=== PATIENT | female | born 1965 | race Caucasian/White ===

== ENCOUNTER → 2017-09-17 15:46 | Outpatient (CLI) | payer BC, SELFPAY ==
--- NOTE | 2017-09-17 15:52 | CT_ITS ---
STUDY: CT CHEST WITHOUT CONTRAST REASON FOR EXAM: Female, 51 years old. Lung nodule. RADIATION DOSAGE (If Supplied By Facility): CTDIvol = ( 15.02 ) mGy, DLP = ( 566.86 ) mGycm TECHNIQUE: Transaxial imaging was performed without the administration of intravenous contrast material. Individualized dose optimization techniques were used for this CT. COMPARISON: CT of the abdomen and pelvis dated November 12, 2015 FINDINGS: Within the left lower lobe there is a stable 4.7 mm pulmonary nodule. There is no demonstrated pleural abnormality. Normal heart and pericardium. There is a moderate size hiatal hernia present. Normal hilar regions. Normal unenhanced pulmonary arteries. Normal aorta arch and descending thoracic aorta. There are multi-level degenerative changes of the thoracic spine. There is no demonstrated abnormality of the visualized upper abdomen. CT/Chest without Contrast IMPRESSION: Stable 4.7 mm left lower lobe pulmonary nodule since October 2015 suggesting a benign process. Hiatal hernia. Electronically Signed: Trisha Echavarria MD at 23:36 EDT Tel , Service support ,
== END ==
PROVIDERS: Family Provider Family Medicine; PCP Family Medicine; Visit Provider Internal Medicine Critical Care Medicine
DX: R91.1 Solitary pulmonary nodule (principal)
CPT/HCPCS: 71250

== ENCOUNTER → 2018-02-25 21:56 | Outpatient (CLI) | payer BC, SELFPAY ==
[2018-02-25 10:35] VITALS: BMI 33.0
[2018-03-02 09:48] LABS: HPV APTIMA, High Risk Negative (Negative)
== END ==
PROVIDERS: Family Provider Family Medicine; PCP Family Medicine; Visit Provider Nurse Practitioner Women's Health
DX: Z12.4 Encounter for screening for malignant neoplasm of cervix (principal)
CPT/HCPCS: 87624; 88175; G0145

== ENCOUNTER → 2018-02-26 07:57 | Outpatient (CLI) | payer BC, SELFPAY ==
[2018-02-25 10:35] VITALS: BMI 33.0
== END ==
PROVIDERS: Family Provider Family Medicine; PCP Family Medicine; Referring Provider Nurse Practitioner Women's Health; Visit Provider Nurse Practitioner Women's Health
DX: Z12.4 Encounter for screening for malignant neoplasm of cervix (principal)

== ENCOUNTER → 2018-03-03 12:45 | Outpatient (CLI) | payer BC, SELFPAY ==
[2018-02-25 10:35] VITALS: BMI 33.0
--- NOTE | 2018-03-03 12:47 | US_ITS ---
STUDY: ULTRASOUND OF THE FEMALE PELVIS - COMPLETE REASON FOR EXAM: Female, 52 years old. Pelvic pain. LMP: January 20, 2018. TECHNIQUE: Transabdominal and Transvaginal TECHNICAL QUALITY: Adequate. COMPARISON: None. FINDINGS: The uterus is anteverted and is in a midline position. The uterus is enlarged and measures 10.3 cm x 8.6 cm x 7.9 cm. There is a Nabothian cyst of the cervix. The endometrium measures 3.0 mm in thickness, and is . There is no demonstrated endometrial mass. Multiple small fibroids are seen. The largest measures 4.1 cm x 4.5 cm x 4.2 cm. I.U.D. - The patient does not have an I.U.D. The right ovary is visualized. The right ovary measures 3.2 cm x 3.0 cm x 0.6 cm. There is no right ovarian cyst or ovarian mass. There is no visualized right adnexal mass or complex lesion. There is normal arterial and normal venous vascularity. The left ovary is visualized. The left ovary measures 1.5 cm x 1.7 cm x 1.1 cm. There is no left ovarian cyst or ovarian mass. There is no visualized left adnexal mass or complex lesion. There is normal arterial and normal venous vascularity. There is no fluid in the cul-de-sac. The pre void volume of the bladder was 60 ml. Polycystic ovary disease: No. US/Transvaginal Non- IMPRESSION: Enlarged fibroid uterus. Electronically Signed: Ti Ramirez MD at 10:50 EST Tel [phone], Service support ,
--- NOTE | 2018-03-03 12:47 | US_ITS ---
STUDY: ULTRASOUND OF THE FEMALE PELVIS - COMPLETE REASON FOR EXAM: Female, 52 years old. Pelvic pain. LMP: January 20, 2018. TECHNIQUE: Transabdominal and Transvaginal TECHNICAL QUALITY: Adequate. COMPARISON: None. FINDINGS: The uterus is anteverted and is in a midline position. The uterus is enlarged and measures 10.3 cm x 8.6 cm x 7.9 cm. There is a Nabothian cyst of the cervix. The endometrium measures 3.0 mm in thickness, and is . There is no demonstrated endometrial mass. Multiple small fibroids are seen. The largest measures 4.1 cm x 4.5 cm x 4.2 cm. I.U.D. - The patient does not have an I.U.D. The right ovary is visualized. The right ovary measures 3.2 cm x 3.0 cm x 0.6 cm. There is no right ovarian cyst or ovarian mass. There is no visualized right adnexal mass or complex lesion. There is normal arterial and normal venous vascularity. The left ovary is visualized. The left ovary measures 1.5 cm x 1.7 cm x 1.1 cm. There is no left ovarian cyst or ovarian mass. There is no visualized left adnexal mass or complex lesion. There is normal arterial and normal venous vascularity. There is no fluid in the cul-de-sac. The pre void volume of the bladder was 60 ml. Polycystic ovary disease: No. US/Pelvic (Non ) IMPRESSION: Enlarged fibroid uterus. Electronically Signed: Ti Ramirez MD at 10:50 EST Tel [phone], Service support ,
== END ==
PROVIDERS: Family Provider Family Medicine; PCP Family Medicine; Referring Provider Nurse Practitioner Women's Health; Visit Provider Nurse Practitioner Women's Health
DX: N93.8 Other specified abnormal uterine and vaginal bleeding (principal)
CPT/HCPCS: 76830; 76856; 93976

== ENCOUNTER → 2018-03-04 13:19 | Outpatient (CLI) | payer BC, SELFPAY ==
[2018-02-25 10:35] VITALS: BMI 33.0
[2018-03-04 14:41] LABS: Follicle Stimulating Hormone 3.5 mIU/mL
--- OUTSIDE RECORDS SUMMARY | 2018-04-20 17:48 | XMS RPT_ITS ---
:1965 Author Organization OHIP Support Name Relationship Address Phone LAURA MCDERMOTT Unavailable [address] + [place] [address] UE Unavailable Unavailable Unavailable MULLET, LAURA Unavailable [address] + [place] [address] UE Unavailable Unavailable Unavailable MULLET, LAURA Unavailable [address] + [place], [place] [phone] MULLET, LAURA Unavailable [address] Unavailable [place], [place] [phone] NOT GIVEN Unavailable Unavailable Unavailable MULLET, LAURA Unavailable [address] + [place], [place] [phone] MULLET, LAURA Unavailable [address] Unavailable [place], [place] [phone] NOT GIVEN Unavailable Unavailable Unavailable MULLET, LAURA Unavailable [address] + [place] [address] UE Unavailable Unavailable Unavailable MULLET, LAURA Unavailable [address] + [place] [address] UE Unavailable Unavailable Unavailable MULLET, LAURA Unavailable [phone] [place] [address] UE Unavailable Unavailable Unavailable MULLET, LAURA Unavailable [address] + [place] [address] UE Unavailable Unavailable Unavailable MULLET, LAURA Unavailable [phone] [place] [address] UE Unavailable Unavailable Unavailable MULLET, LAURA Unavailable [address] + [place] [address] S Unavailable Unavailable Unavailable Care Team Providers Name Role Phone LAVELL HOOD Admitting Unavailable LAVELL HOOD Attending Unavailable LAVELL HOOD Primary Care Unavailable LAVELL HOOD Consulting Unavailable PROVIDER, UNKNOWN Consulting Unavailable MELODIE CEDILLO MD Admitting Unavailable MAMADOU, MELODIE FLOYD Attending Unavailable MELODIE CEDILLO MD Primary Care Unavailable WELD, LAVELL Consulting Unavailable PROVIDER, UNKNOWN Consulting Unavailable [place], Lola Attending Unavailable [place], Lola Referring Unavailable Plato, Lavell PA-C Primary Care Unavailable Roland Chaparro D.O. Attending Unavailable Plato, Lavell PA-C Referring Unavailable Plato, Lavell PA-C Primary Care Unavailable Roland Chaparro D.O. Attending Unavailable Roland Chaparro D.O. Referring Unavailable Plato, Lavell PA-C Primary Care Unavailable Dupont, Diana Attending Unavailable Plato, Lavell PA-C Referring Unavailable Meir, Lola Attending Unavailable Plato, Lavell PA-C Referring Unavailable Meir, Lola Attending Unavailable Plato, Lavell PA-C Primary Care Unavailable Meir, Lola Attending Unavailable [place], Lola Referring Unavailable Plato, Lavell PA-C Primary Care Unavailable Meir, Lola Attending Unavailable Meir, Lola Referring Unavailable Plato, Lavell PA-C Primary Care Unavailable PROBLEMS PROBLEMS DATE TYPE CONDITION / CODE ATTENDING STATUS SOURCE 03/03/2018 Unknown N93.8 - Other [place], Lola Active [facility] specified Community abnormal uterine Hospital and vaginal Repository bleeding / N93.8(ICD-10) 02/26/2018 Unknown Z12.4 - [place], Lola Active [place] Encounter for Community screening for Hospital malignant Repository neoplasm of cervix / Z12.4(ICD-10) 09/19/2017 Unknown R06.02 - Kiah, Active [place] Shortness of [place] Community breath / Hospital R06.02(ICD-10) Repository 09/17/2017 Unknown R91.1 - Solitary Roland Chaparro, Active [facility] pulmonary nodule D.[facility]. Community / R91.1(ICD-10) Hospital Repository PROCEDURES PROCEDURES No Procedure Records FoundRESULTS RESULTS FOLLICLE STIMULATING Collected: 03/04/2018 Status: F Source: [facility] TYPE CODE TESTS RESULT OUT OF RANGE REFERENCE UNITS LAB L3100.5125 mIU/mL Normal FSH 3.5 Result Comment: NORMAL REFERENCE RANGES FEMALE FOLLICULAR 2.3 - 12.6 mIU/mL MID-CYCLE PEAK 5.2 - 17.5 mIU/mL LUTEAL 1.7 - 12.9 mIU/mL POST-MENOPAUSAL ON MHT 5.9 - 72.8 mIU/mL NOT ON MHT 12.7 - 132.2 mlU/mL MALE 0.7 - 10.8 mIU/mL NEW TEST METHOD AND REFERENCE RANGES AUGUST 13, 2011 Performed By: #### L3100.5125 #### [facility] [address] [place], [address] PELVIC (NON ) Observed: 03/03/2018 Status: F Source: [place] 12:47 PM [facility] REPOSITORY [facility] Imaging Services [address] [place] [address] Pelvic (Non ) MR#: [id number] Acct: [id number] Name: KG MCDERMOTT Rep #: [id number] : 1965 F 52 From: Ti Ramirez MD PCP: Lavell Hood PA-C Status: REG CLI Study: Pelvic (Non ) Date of Exam: 03/03/18 Exam# [id number] Ordering Dr: Lola Worley STUDY: ULTRASOUND OF THE FEMALE PELVIS - COMPLETE REASON FOR EXAM: Female, 52 years old. Pelvic pain. LMP: January 20, 2018. TECHNIQUE: Transabdominal and Transvaginal TECHNICAL QUALITY: Adequate. COMPARISON: None. FINDINGS: The uterus is anteverted and is in a midline position. The uterus is enlarged and measures 10.3 cm x 8.6 cm x 7.9 cm. There is a Nabothian cyst of the cervix. The endometrium measures 3.0 mm in thickness, and is . There is no demonstrated endometrial mass. Multiple small fibroids are seen. The largest measures 4.1 cm x 4.5 cm x 4.2 cm. I.U.D. - The patient does not have an I.U.D. The right ovary is visualized. The right ovary measures 3.2 cm x 3.0 cm x 0.6 cm. There is no right ovarian cyst or ovarian mass. There is no visualized right adnexal mass or complex lesion. There is normal arterial and normal venous vascularity. The left ovary is visualized. The left ovary measures 1.5 cm x 1.7 cm x 1.1 cm. There is no left ovarian cyst or ovarian mass. There is no visualized left adnexal mass or complex lesion. There is normal arterial and normal venous vascularity. There is no fluid in the cul-de-sac. The pre void volume of the bladder was 60 ml. Polycystic ovary disease: No. US/Pelvic (Non ) IMPRESSION: Enlarged fibroid uterus. Electronically Signed: Ti Ramirez MD at 10:50 EST Tel [phone], Service support , CC: SHELLEY Worley; RENEA Hood Nail Machine Operator: Signed TRANSVAGINAL Observed: 03/03/2018 Status: F Source: [place] NON- 12:47 PM [facility] REPOSITORY [facility] Imaging Services [address] [place] [address] Transvaginal Non- MR#: [id number] Acct: [id number] Name: KG MCDERMOTT Rep #: [id number] : 1965 F 52 From: Ti Ramirez MD PCP: Lavell Hood PA-C Status: REG CLI Study: Transvaginal Non- Date of Exam: 03/03/18 Exam# [id number] Ordering Dr: Lola Worley STUDY: ULTRASOUND OF THE FEMALE PELVIS - COMPLETE REASON FOR EXAM: Female, 52 years old. Pelvic pain. LMP: January 20, 2018. TECHNIQUE: Transabdominal and Transvaginal TECHNICAL QUALITY: Adequate. COMPARISON: None. FINDINGS: The uterus is anteverted and is in a midline position. The uterus is enlarged and measures 10.3 cm x 8.6 cm x 7.9 cm. There is a Nabothian cyst of the cervix. The endometrium measures 3.0 mm in thickness, and is . There is no demonstrated endometrial mass. Multiple small fibroids are seen. The largest measures 4.1 cm x 4.5 cm x 4.2 cm. I.U.D. - The patient does not have an I.U.D. The right ovary is visualized. The right ovary measures 3.2 cm x 3.0 cm x 0.6 cm. There is no right ovarian cyst or ovarian mass. There is no visualized right adnexal mass or complex lesion. There is normal arterial and normal venous vascularity. The left ovary is visualized. The left ovary measures 1.5 cm x 1.7 cm x 1.1 cm. There is no left ovarian cyst or ovarian mass. There is no visualized left adnexal mass or complex lesion. There is normal arterial and normal venous vascularity. There is no fluid in the cul-de-sac. The pre void volume of the bladder was 60 ml. Polycystic ovary disease: No. US/Transvaginal Non- IMPRESSION: Enlarged fibroid uterus. Electronically Signed: Ti Ramirez MD at 10:50 EST Tel [phone], Service support , CC: SHELLEY Worley; RENEA Hood Nail Machine Operator: Signed KNEE COMPLETE RT MIN Observed: 03/03/2018 Status: F Source: [facility] BANG VIEWS 12:06 PM [place] [address] Patient: KG MCDERMOTT Phone#: : 1965 Age: 52 Gender: F Pt. Type: Out Account: [id number] Location: Ordering: MELODIE CEDILLO Exam Date: 03/03/2018/11:31 Family Phys: LAVELL HOOD Charge Code: 869697 Physician: Garland Order #: [id number] DLP Dose#: PROCEDURE: X-RAY KNEE RT COMPLETE 4 VIEWS COMPARISON: None. INDICATIONS: Pain in right knee FINDINGS: BONES: Mild degenerative changes of the knee are present. There is mild lateral subluxation of the patella. There is mild narrowing of the medial compartment. SOFT TISSUES: Negative. No visible soft tissue swelling. EFFUSION: None visible. OTHER: Negative. CONCLUSION: No acute disease. Dictated by: Samantha Boggs MD on 03/03/2018 at 12:28 Approved by: Samantha Boggs MD on 03/03/2018 at 12:28 HIP BILAT 2+ VIEWS Observed: 03/03/2018 Status: F Source: JAMAL LYONSSHREYAS W/AP PELVIS 12:04 PM [place] [address] Patient: KG MCDERMOTT Phone#: : 1965 Age: 52 Gender: F Pt. Type: Out Account: [id number] Location: Ordering: MELODIE SU Exam Date: 03/03/2018/11:36 Family Phys: [facility] Charge Code: [id number] Physician: Garland Order #: [id number] DLP Dose#: PROCEDURE: X-RAY HIP BILAT MIN 2 VIEWS W/AP PELVIS COMPARISON: None. INDICATIONS: Pain in hips FINDINGS: BONES: Normal. No significant arthropathy or acute abnormality. SOFT TISSUES: Negative. No visible soft tissue swelling. EFFUSION: None visible. OTHER: Negative. CONCLUSION: No acute disease. Dictated by: Samantha Boggs MD on 03/03/2018 at 12:26 Approved by: Samantha Boggs MD on 03/03/2018 at 12:26 SCOLIOSIS 2 - 3 VIEWS Observed: 03/03/2018 Status: F Source: JAMAL BANG 12:01 PM [place] [address] Patient: KG MCDERMOTT Phone#: : 1965 Age: 52 Gender: F Pt. Type: Out Account: [id number] Location: Ordering: MELODIE CEDILLO Exam Date: 03/03/2018/11:22 Family Phys: LAVELL HOOD Charge Code: [id number] Physician: Garland Order #: [id number] DLP Dose#: PROCEDURE: SCOLIOSIS 2-3 VIEWS COMPARISON: None. INDICATIONS: Scoliosis FINDINGS: BONES: Curvature of the thoracic spine to the right is present and extends from T3-L1 and measures 9.5. There is curvature of the lumbar spine to the left extending from L1- S1 and measures 10.7. There is no evidence of acute bone abnormality. DISC SPACES: Normal. No significant disc height narrowing, subluxation, or endplate abnormality. PARASPINOUS: Negative. No paraspinous abnormality is seen. OTHER: Negative. CONCLUSION: 1. Thoracolumbar scoliosis is present. Thoracic curvature is 9.5. The lumbar curvature is 10.7. Dictated by: Samantha Boggs MD on 03/03/2018 at 12:38 Approved by: Samantha Boggs MD on 03/03/2018 at 12:38 URINALYSIS WITH Collected: 03/03/2018 Status: F Source: JAMAL BETI MICROSCOPY 10:54 AM [facility] REPOSITORY TYPE CODE TESTS RESULT OUT OF REFERENCE UNITS RANGE LAB URINALYSIS WITH MICROSCOPY(LOIN C) URINALYSIS WITH MICROSCOPY Result Comment: URINALYSIS LAB Specimen Type(LOINC) Specimen Type Void LAB Color(LOINC) NORMAL: YELLOW Color keven LAB Clarity(LOINC) NORMAL: CLEAR Clarity very cloudy LAB ph(LOINC) NORMAL: 5.0-8.0 ph 7 LAB Protein(LOINC) NORMAL: NEGATIVE Protein Abnormal 15 LAB Glucose(LOINC) NORMAL: NORMAL Glucose NORM LAB Ketone(LOINC) NORMAL: NEGATIVE Ketone NEG LAB Bilirubin(LOINC) NORMAL: NEGATIVE Bilirubin NEG LAB Blood(LOINC) NORMAL: NEGATIVE Blood Abnormal 50 LAB Urobilinog(LOINC) NORMAL: NORMAL Urobilinog NORM LAB Sp Graford(LOINC) NORMAL: 1.010-1.030 Sp [place]ford 1.010 LAB Nitrite(LOINC) NORMAL: NEGATIVE Nitrite NEG LAB Leukocytes(LOINC) NORMAL: NEGATIVE Abnormal Leukocytes 500 Result Comment: URINE MICROSCOPIC LAB Wbc(LOINC) 0-5 / hpf Wbc 6-10 LAB Rbc(LOINC) 0-3 / hpf Rbc NONE LAB Casts(LOINC) Casts NONE LAB Crystals(LOINC) Crystals NONE LAB Amorphous(LOINC) Amorphous NONE LAB Bacteria(LOINC) Bacteria 4+ LAB Epi Cells(LOINC) Epi Cells MANY LAB Mucous(LOINC) Mucous NONE LAB Yeast(LOINC) Yeast NONE Performed By: #### [id number] #### [place] [address] SEDRATE Collected: 03/03/2018 Status: F Source: [facility] 10:54 [facility] REPOSITORY TYPE CODE TESTS RESULT OUT OF REFERENCE UNITS RANGE LAB SEDRATE(GUILLERMINA 0 - 30 mm/hr NC) SEDRATE 13 Performed By: #### [id number] #### [place] [address] CPK Collected: 03/03/2018 Status: F Source: [facility] 10:54 [facility] REPOSITORY TYPE CODE TESTS RESULT OUT OF RANGE REFERENCE UNITS LAB CPK(LOINC) 26 - 140 U/L CPK 44 Performed By: #### [id number] #### [place] [address] C-REACTIVE PROTEIN Collected: 03/03/2018 Status: F Source: [facility] 10:54 [facility] REPOSITORY TYPE CODE TESTS RESULT OUT OF RANGE REFERENCE UNITS LAB CRP(LOINC) 0.00 - 1.00 mg/dl CRP 0.20 Performed By: #### [id number] #### [place] [address] CREATININE CLEARANCE, Collected: 03/03/2018 Status: F Source: [facility] SERUM 10:54 [facility] REPOSITORY TYPE CODE TESTS RESULT OUT OF REFERENCE UNITS RANGE LAB CREATININE 0.6 - 1.2 mg/dl (LOINC) CREATININE 0.9 LAB AGE(LOINC) years AGE 52 LAB eGFR(LOINC 60 - 999 ML/MINUTE ) eGFR >60 LAB eGFR(AA)(L 60 - 999 ML/MINUTE OINC) eGFR(AA) >60 Result Comment: ACCORDING TO THE NATIONAL KIDNEY DISEASE EDUCATION PROGRAM(NKDE), A NORMAL eGFR IS A VALUE GREATER THAN OR EQUAL TO 60 ML/MIN/1.73 SQ METERS. CHRONIC KIDNEY DISEASE: <60mL/MIN/1.73 SQ METERS KIDNEY FAILURE: <15mL/MIN/1.73 SQ METERS THIS TEST SHOULD ONLY BE USED FOR PATIENTS 18 YEARS OF AGE AND OLDER. Performed By: #### [id number] #### [facility],[address] [place], [place] [id number] HEPATIC FUNCTION Collected: 03/03/2018 Status: F Source: [facility] B[facility] PANEL 10:54 [facility] REPOSITORY TYPE CODE TESTS RESULT OUT OF REFERENCE UNITS RANGE LAB HEPATIC FUNCTION PANEL(LOINC) HEPATIC FUNCTION PANEL Result Comment: HEPATIC FUNCTION PROFILE LAB ALBUMIN(LOINC) 3.4 - 4.8 g/dL ALBUMIN 4.5 LAB ALK PHOS(LOINC) 38 - 126 U/L ALK PHOS 91 LAB AST/SGOT(LOINC) 13 - 39 U/L AST/SGOT 13 LAB ALT/SGPT(LOINC) 8 - 35 U/L ALT/SGPT 11 LAB TOTAL BILI(LOINC) 0.0 - 1.5 mg/dl TOTAL BILI 0.6 LAB DIRECT BILI(LOINC) 0.0 - 0.1 mg/dl DIRECT BILI 0.1 LAB TOTAL PROTEIN(LOINC) 6.4 - 8.3 g/dl TOTAL PROTEIN 7.7 Performed By: #### [id number] #### [address] [address] TSH Collected: 03/03/2018 Status: F Source: J[facility]AL LYONSSHREYAS 10:54 [facility] REPOSITORY TYPE CODE TESTS RESULT OUT OF RANGE REFERENCE UNITS LAB TSH(LOINC) 0.34 - 5.60 uIU/ml TSH 1.28 Performed By: #### [id number] #### [address] [address] VITAMIN D, 25 Collected: 03/03/2018 Status: F Source: J[facility] BANG HYDROXY 10:54 [facility] REPOSITORY TYPE CODE TESTS RESULT OUT OF RANGE REFERENCE UNITS LAB VitD(LOINC) 30.00 - 100 ng/mL High VitD >120.00 Result Comment: 25-OHD3 indicates both endogenous production and supplementation. 25-OHD2 is an indicator of exogenous sources, such as diet or supplementation. Therapy is based on measurement of Total 25-OHD, with levels <20 ng/mL indicative of Vitamin D deficiency, while levels between 20 ng/mL and 30 ng/mL suggest insufficiency. Optimal levels are >=30ng/mL. Vitamin D, 25-OH D3 Not Established Vitamin D, 25-OH D2 Not Established Performed By: #### [id number] #### [facility],[address] [place] [address] TERESA ANTIBODY Collected: 03/03/2018 Status: F [facility] 10:54 AM [facility] REPOSITORY TYPE CODE TESTS RESULT OUT OF REFERENCE UNITS RANGE LAB TERESA ANTIBODY PANEL(CCL)(GUILLERMINA NC) TERESA ANTIBODY PANEL([facility]) Result Comment: _ENA ANTIBODY PANEL(CCL)_ TERESA ANTIBODY PANEL([facility]) Reported: 03/05/2018 15:22 Status=F TEST RESULT FLAG RANGE UNITS Sm Antibody <0.2 <1.0 AI 03/05/18.152.rfl.COMPLETE.ATLR Negative Negative: <1.0 AI Positive: >0.9 AI COATING ENGINEER Antibody 0.6 <1.0 AI 03/05/18.152.rfl.COMPLETE.ATLR Negative Negative: <1.0 AI Positive: >0.9 AI SSA Antibody <0.2 <1.0 AI 03/05/18.1524.rfl.COMPLETE.ATLR Negative Negative: <1.0 AI Positive: >0.9 AI SSB Antibody <0.2 <1.0 AI 03/05/18.1524.rfl.COMPLETE.ATLR Negative Negative: <1.0 AI Positive: >0.9 AI Centromere <0.2 <1.0 AI 03/05/18.1524.rfl.COMPLETE.ATLR Negative Negative: <1.0 AI Positive: >0.9 AI Scleroderma IgG Ab <0.2 <1.0 AI 03/05/18.1524.rfl.COMPLETE.ATLR Negative Negative: <1.0 AI Positive: >0.9 AI KALEE 1 Antibody <0.2 <1.0 AI 03/05/18.1524.rfl.COMPLETE.ATLR Negative Negative: <1.0 AI Positive: >0.9 AI Ribosomal COATING ENGINEER <0.2 <1.0 AI 03/05/18.1524.rfl.COMPLETE.ATLR Negative Negative: <1.0 AI Positive: >0.9 AI Chromatin Antibody 0.3 <1.0 AI 03/05/18.1524.rfl.COMPLETE.ATLR Negative Negative: <1.0 AI Positive: >0.9 [place] [address] Ioana Gonzales M.D. [id number] Performed By: #### [id number] #### [facility],[address] [place] [address] COMPLEMENT C3 [CCL] Collected: 03/03/2018 Status: F Source: [facility] 10:54 AM [facility] REPOSITORY TYPE CODE TESTS RESULT OUT OF REFERENCE UNITS RANGE LAB COMPLEMENT C3 [CCL](LOINC) COMPLEMENT C3 [CCL] Result Comment: _COMPLEMENT C3 [CCL]_ COMPLEMENT C3 [CCL] Reported: 03/05/2018 15:22 Status=F TEST RESULT FLAG RANGE UNITS C3 Complement 151 86-166 mg/dL 03/05/18.1524.[place] [address] Ioana Gonzales M.D. [id number] Performed By: #### [id number] #### [facility],[address] [place], [place] [id number] COMPLEMENT C4 [CCL] Collected: 03/03/2018 Status: F Source: JAMAL BANG 10:54 [facility] REPOSITORY TYPE CODE TESTS RESULT OUT OF REFERENCE UNITS RANGE LAB COMPLEMENT C4 [CCL](LOINC) COMPLEMENT C4 [CCL] Result Comment: _COMPLEMENT C4 [CCL]_ C4 Complement Reported: 03/05/2018 15:22 Status=F TEST RESULT FLAG RANGE UNITS C4 Complement 39 13-46 mg/dL 03/05/18.1524.rflMargaretCOMPLETE.[facility] [address] [place] [address] Ioana Gonzales M.D. [id number] Performed By: #### [id number] #### [facility],[address] [place] [address] CARDIOLIPIN ANTIBODIES Collected: 03/03/2018 Status: F Source: JAMAL BANG [CCL] 10:54 AM [facility] REPOSITORY TYPE CODE TESTS RESULT OUT OF REFERENCE UNITS RANGE LAB CARDIOLIPIN ANTIBODIES [CCL](LOINC) CARDIOLIPIN ANTIBODIES [CCL] Result Comment: _CARDIOLIPIN ANTIBODIES [CCL]_ CARDIOLIPIN ANTIBODIES [CCL] Reported: 03/05/2018 15:22 Status=F TEST RESULT FLAG RANGE UNITS IgG Cardiolipin Ab. <9 0-9 GPL 03/05/18.1524.rfl.COMPLETE.ATLR <10 GPL Negative 10-40 GPL Equivocal >40 GPL Positive The following results were obtained with the [employer] QUANTA Lite DEMETRIS IgG III GABRIELA. Cardiolipin IgG values obtained with the different manufacturers' assay methods may not be used interchangeably. The magnitude of the reported IgG levels cannot be correlated to an endpoint titer. IgM Cardiolipin Ab. <9 0-11 MPL 03/05/18.1524.rfl.COMPLETE.ATLR <12 MPL Negative 12-40 MPL Equivocal >40 MPL Positive The following results were obtained with the [employer] QUANTA Lite DEMETRIS IgM III GABRIELA. Cardiolipin IgM values obtained with different manufacturers' assay methods may not be used interchangeably. The magnitude of the reported IgM levels cannot be correlated to an endpoint titer. IgA Cardiolipin Ab. <9 0-11 APL 03/05/18.1524.rfl.COMPLETE.ATLR <12 APL Negative 12-40 APL Equivocal >40 APL Positive The following results were obtained with an [employer] QUANTA Lite DEMETRIS IgA III GABRIELA. Cardiolipin IgA values obtained with different manufacturers' assay methods may not be used interchangeably. The magnitude of the reported IgA levels cannot be correlated to an endpoint titer. [address] [address] Ioana Gonzales M.D. [id number] Performed By: #### [id number] #### [facility],[address] [place], [place] [id number] DNA ANTIBODY [CCL] Collected: 03/03/2018 Status: F [facility]: [facility] AM [facility] REPOSITORY TYPE CODE TESTS RESULT OUT OF REFERENCE UNITS RANGE LAB DNA ANTIBODY [CCL](LOINC) DNA ANTIBODY [CCL] Result Comment: _DNA ANTIBODY [CCL]_ DNA ANTIBODY [CCL] Reported: 03/05/2018 15:22 Status=F TEST RESULT FLAG RANGE UNITS DNA Antibody <12 <30 IU/mL 03/05/18.1524.rfl.COMPLETE.ATLR Negative for ds DNA Antibodies Negative: <30 IU/mL Equivocal: 30-74 IU/mL Positive: >74 IU/mL [address] [address] Ioana Gonzales M.D. [id number] Performed By: #### [id number] #### [place] [id number] BISI BY IFA SCREEN Collected: 03/03/2018 Status: F Source: [facility] [CCL] 10:54 AM [facility] REPOSITORY TYPE CODE TESTS RESULT OUT OF REFERENCE UNITS RANGE LAB BISI BY IFA SCREEN [CCL](LOINC) BISI BY IFA SCREEN [CCL] Result Comment: _ANA BY IFA SCREEN [CCL]_ BISI BY IFA SCREEN [CCL] Reported: 03/05/2018 15:22 Status=F TEST RESULT FLAG RANGE UNITS BISI Positive A NEGAT 03/05/18.1524.rfl.COMPLETE.ATLR Normal range : negative at <1:80 serum dilution. BISI Titer 1:80 A NEGAT 03/05/18.1524.rfl.COMPLETE.ATLR BISI Pattern Homogeneous 03/05/18.1524.[place] [address] Ioana Gonzales M.D. [id number] Performed By: #### [id number] #### [facility],[address] [facility] [address] TERESA ANTIBODY PANEL Collected: 03/03/2018 Status: F Source: [facility] 10:54 [facility] REFERENCE REPOSITORY TYPE CODE TESTS RESULT OUT OF REFERENCE UNITS RANGE LAB SMIB(LOINC <1.0 AI ) Sm Antibody <0.2 LAB RNPIB(LOIN <1.0 AI C) COATING ENGINEER Antibody 0.6 LAB SSAIB(LOIN <1.0 AI C) SSA Antibody <0.2 LAB SSBIB(LOIN <1.0 AI C) SSB Antibody <0.2 LAB CENTIB(GUILLERMINA <1.0 AI NC) Centromere <0.2 LAB SCLIB(LOIN <1.0 AI C) Scleroderma IgG Ab <0.2 LAB JO1IB(LOIN <1.0 AI C) KALEE 1 Antibody <0.2 LAB RRNPIB(GUILLERMINA <1.0 AI NC) Ribosomal COATING ENGINEER <0.2 LAB CHRMIB(GUILLERMINA <1.0 AI NC) Chromatin Antibody 0.3 Performed By: #### ENAID, C3COMP, C4COMP #### [facility] Routine Lab [address] [place] [phone] #### CARDIO #### [facility] Immunology [address] [place], [place] [address] #### DNAAB, ANAIFS #### [facility] Immuno Assay [address] [place], [place] [phone] C3 COMPLEMENT Collected: 03/03/2018 Status: F Source: [facility] 10:54 AM [facility] REFERENCE REPOSITORY TYPE CODE TESTS RESULT OUT OF REFERENCE UNITS RANGE LAB C3COMP(GUILLERMINA 86-166 mg/dL NC) C3 Complement 151 Performed By: #### ENAID, C3COMP, C4COMP #### [facility] Routine Lab [address] [place], [place] [phone] #### CARDIO #### [facility] Immunology [address] [place], [place] [address] #### DNAAB, ANAIFS #### [facility] Immuno Assay [address] [place] [phone] C4 COMPLEMENT Collected: 03/03/2018 Status: F Source: [facility] 10:54 AM [facility] REFERENCE REPOSITORY TYPE CODE TESTS RESULT OUT OF REFERENCE UNITS RANGE LAB C4COMP(GUILLERMINA 13-46 mg/dL NC) C4 Complement 39 Performed By: #### ENAID, C3COMP, C4COMP #### [facility] Routine Lab [address] [place] [phone] #### CARDIO #### [facility] Immunology [address] [place] [phone] #### DNAAB, ANAIFS #### [facility] Immuno Assay [address] [place] [phone] CARDIOLIPIN ANTIBODY Collected: 03/03/2018 Status: F Source: [facility] 10:54 AM [facility] REFERENCE REPOSITORY TYPE CODE TESTS RESULT OUT OF REFERENCE UNITS RANGE LAB CARDG(LOIN 0-9 GPL C) IgG Cardiolipin Ab. <9 LAB CARDM(LOIN 0-11 MPL C) IgM Cardiolipin Ab. <9 LAB CARDA(LOIN 0-11 APL C) IgA Cardiolipin Ab. <9 Performed By: #### ENAID, C3COMP, C4COMP #### [facility] Routine Lab [address] [place] [phone] #### CARDIO #### [facility] Immunology [address] [place] [phone] #### DNAAB, ANAIFS #### [facility] Immuno Assay [address] [place] [phone] DNA ANTIBODY Collected: 03/03/2018 Status: F Source: [facility] 10:54 AM [facility] REFERENCE REPOSITORY TYPE CODE TESTS RESULT OUT OF REFERENCE UNITS RANGE LAB DNAAB1(LOIN <30 IU/mL C) DNA Antibody <12 Performed By: #### ENAID, C3COMP, C4COMP #### [facility] Routine Lab [address] [place] [phone] #### CARDIO #### [facility] Immunology [address] [place], [place] [phone] #### DNAAB, ANAIFS #### [facility] Immuno Assay [address] [phone] BISI BY IFA Collected: 03/03/2018 Status: F Source: AMANA 10:54 AM CLINIC REFERENCE REPOSITORY TYPE CODE TESTS RESULT OUT OF RANGE REFERENCE UNITS LAB ANASC(LOIN Negative C) Abnormal BISI Positive LAB CLARE(LOINC Negative ) Abnormal BISI Titer D80 LAB ANAP(LOINC ) BISI Pattern HOMO Performed By: #### ENAID, C3COMP, C4COMP #### [facility] Routine Lab [address] [place], [place] [id number] #### CARDIO #### [facility] Immunology [address] [address] #### DNAAB, ANAIFS #### [facility] Immuno Assay [address] [place], [place] [address] VICE PRESIDENT OF ADVERTISING OFFICE VISIT Observed: 02/25/2018 Status: F Source: [place] REPORT 10:54 AM [facility] 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 Is patient in pain?: No Allergies No Known Allergies Allergy (Verified 02/25/18 10:28) Medications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 on inspiration, inhalers, increase use of rescue inhalers, snoring, apnea or other Gastro Gastrointestional: Negative bloody stools, change in appetite, difficulty swallowing, reflux, hematemesis, melena stool, loose stool, constipation or other Genitourinary: Negative blood in urine, nocturia, pain with urination or other Musc Musculoskeletal: Negative body pain, back pain, neck pain or other Skin/Breast Skin/Breast: Negative dry skin, itching, rash, unusual bruising, breast lump or other Neuro Neurological: Negative restless legs, confusion, weakness or other Psych Psychocological: Negative abnormal sleep pattern, anxiety, thoughts of hurting self/others, hopelessness or other Lymph Lymphatic: Negative easy bleeding, easy bruising, swollen lymph nodes or other Exam Const Constitutional: Positive conversant, cooperative, in no acute respiratory distress, well developed, well nourished and good hygiene Head Head: Positive normocephalic and atraumatic; negative cyanosis of lips/distal nose Eyes Eye: Positive clear conjunctiva; negative nystagmus or scleral abnormality Ears Ear: Positive hearing normal and external ears normal; negative hard of hearing Nose Nose: Positive external nose normal; negative epistaxis Mouth Mouth: Positive oral mucosae normal and posterior oropharynx is adequate; negative no lesions or post nasal drip Mallampati Score: II: Mallampati Score Neck Neck: Positive normal visual inspection and trachea midline; negative lymphadenopathy Chest Wall Chest: Positive symmetric chest movement Normal AP diameter. Resp lung sounds: Positive clear to auscultation and good air exchange; negative wheezes, rhonchi or rales Cardio Cardiac: Positive regular rate, regular rhythm, S1 normal and S2 normal; negative rub, gallop or murmur GI GI: Positive normal bowel sounds Soft without distention Genitourinary: Positive deferred [facility] Musculoskeletal: Positive steady gait Skin Pulmonary Skin Exam: Positive intact; negative lesion, ulcers, dermal atrophy or rash Pulses Pulse: Yes Pedal pulses present: Extremities Extremities: No clubbing, No cyanosis, No edema Neuro Neurologic: Yes conversant, Yes no focal neuro deficits, Yes cooperative Lymph Lymphatic: No lymphadenopathy Psych Appearance: Positive grossly normal Mental Status: Positive mental status grossly normal Mood: Positive congruent mood Affect: Positive normal affect Coding Level of Care Code Off vis,new,level 4 Diagnoses Pulmonary nodule R91.1 08/21/17 1140 <Electronically signed by Roland Chaparro DO> Date Roland Che Signature: Date (if applicable) CC: RENEA Vincent Plato ALLERGIES ALLERGIES DATE TYPE / CODE NAME / CODE REACTION SEVERITY SOURCE 02/25/2018 Drug No Known Unknown [place] Allergy[facility]761519426[facility] Rep[facility] Miscellaneous No Known Drug Moderate [facility] Allergy/589884797(S Allergies (Severity [facility] NOMED CT) Modifier) [facility] (Qualifier Repository Value) ENCOUNTERS ENCOUNTERS ADMIT/DISCHARGE ACCOUNT ADMITTING ENCOUNTER LOCATION SOURCE NUMBER CLASS 03/04/2018 [id number] Ambulatory [place] 3 [facility] ing:PAVLAB Repository 03/03/2018 [id number] Ambulatory [place] 9 [facility] ing:OPUS Repository 03/03/2018/ [id number] MELODIE CEDILLO MD Ambulatory [address] Repository 03/03/2018 [id number] [facility] Repository 02/26/2018 [id number] Ambulatory [place] 0 [facility] ing:LAB Repository 02/25/2018 [id number] Ambulatory [place] 2 [facility] ing:LABSPEC Repository 02/25/2018/ [id number] Ambulatory BMSBuilding:B [place] 8 9 [facility] Repository 09/19/2017/ [id number] Ambulatory BMSBuilding:B [place] 8 3 [facility] Repository 09/17/2017 [id number] Ambulatory [place] 9 [facility] ing:CT Repository 08/21/2017/ [id number] Ambulatory BMSBuilding:B [place] 8 4 [facility] Repository PAYERS PAYERS ENCOUNTER GUARANTOR PAYER SUBSCRIBER SOURCE 03/04/2018 LAURA Primary LAURA MULLETDOB: [place] [id number] Insurance:ANTHEMPolicy [id number] [facility] Number: [facility] Dimitris [id number] [place]ository [place] [address]Xze: Date:2257-31-51AF [address]HLMKTP, [place] () [address]LP: 03/04/2018 Secondary NOT GIVENUNK [place] Insurance:SELF PAY [facility] Number: Effective Repository Date:2018-03-04 03/03/2018 LUARA Primary LAURA MULLETDOB: [place] [id number] Insurance:ANTHEMPolicy [id number] [facility] Number: [facility] [id number] Repository [place] [address]Mkx: Date:9510-13-86HM [address]GTBZFPH, [place] () [address]HJ: 03/03/2018 Secondary NOT GIVENUNK [place] Insurance:SELF PAY [facility] Number: Effective Repository Date:2018-02-25 03/03/2018 KG L Primary Insurance:BLUE LAURA Teresa Bang MULLETDOB: CROSS [address] ANTHEM MULLETDOB: [facility] [id number] [facility] [id number] [facility] Number: [facility] Repository [facility] [id number] [place], [place] Date:Plan Name:[facility] [id number]: () 03/03/2018 KG L Primary Insurance:BLUE LAURA E Jamal Englishne MULLETDOB: CROSS [birth year] ANTHEM MULLETDOB: [facility] [id number] [facility] Number: [facility] Repository [facility], [id number] [place], [place] Date:Plan Name:[facility] [id number]: () 02/26/2018 LAURA Primary LAURA MULLETDOB: [place] [id number] Insurance:ANTHEMPolicy [id number] [facility] Number: [facility], [id number] Repository [place] [address]Ebo: Date:2555-37-51NR [address]TTJYYPHHELENA [address]ONE () [address]XS: 02/26/2018 Secondary NOT GIVENUNK [place] Insurance:SELF PAY [facility] Number: Effective Repository Date:2018-02-26 02/25/2018 Laura Primary Laura MulletDOB: [place] [id number] Insurance:ANTHEMPolicy [id number] [facility] Number: [facility], [id number] Repository [place] [address]Gll: Date:2686-42-10VK [address]NUVYIGFHELENA BOONE () [address]TH: 02/25/2018 Secondary NOT GIVENUNK [place] Insurance:SELF PAY [facility] Number: Effective Repository Date:2018-02-25 02/25/2018 Laura Primary Laura MulletDOB: [place] [id number] Insurance:ANTHEMPolicy [id number] [facility] Number: [facility], [id number] Repository [place] [address]Wnx: Date:1056-40-94VV [address]FFVIZBHHELENA [address] () [address]TC: 02/25/2018 Secondary NOT GIVENUNK [place] Insurance:SELF PAY [facility] Number: Effective Repository Date:2018-02-25 09/19/2017 Laura Primary Laura MulletDOB: [place] [id number] Insurance:ANTHEMPolicy [id number] [facility] Number: [facility] [id number] Repository [place] [address]Vgs: Date:8195-89-92RU [address]NZINAXHHE[address]NA [address] () [address]UW: 09/19/2017 Secondary NOT GIVENUNK [place] Insurance:SELF PAY [facility] Number: Effective Repository Date:2017-09-17 09/17/2017 Laura Primary Laura McdermottDOB: [place] [id number] Insurance:ANTHEMPolicy [id number] [facility] Number: [facility] [id number] [place]ository [place] [address]Tbd: Date:7300-10-75UZ [address]PFSASLV, [place] () [address]OE: 09/17/2017 Secondary NOT GIVENUNK [place] Insurance:SELF PAY [facility] Number: Effective Repository Date:2017-09-06 08/21/2017 Laura McdermottDOB: [place] [id number] Insurance:ANTHEMPolicy [id number] [facility] Number: [facility] [id number] [place]ository [place] [address]Rwk: Date:2738-95-79LN [address]FWQUJARHE[address] () [address]VI: 08/21/2017 Secondary NOT GIVENUNK [place] Insurance:SELF PAY [facility] Number: Effective Repository Date:2017-07-08
== END ==
PROVIDERS: Family Provider Family Medicine; PCP Family Medicine; Referring Provider Nurse Practitioner Women's Health; Visit Provider Nurse Practitioner Women's Health
DX: N92.6 Irregular menstruation, unspecified (principal)
CPT/HCPCS: 36415; 83001

== ENCOUNTER 2018-08-21 05:25 | Day surgery (SDC) | payer BC, SELFPAY ==
[2018-06-18 15:37] VITALS: BMI 33.0
[2018-08-11 10:50] VITALS: BMI 33.0
--- NOTE | 2018-08-19 16:33 | HP.PCM_ITS ---
- Problem List (1) Pelvic pain Status: Acute (2) Intramural uterine fibroid Status: Chronic Comment: plan LAVH BS cysto (3) SOB (shortness of breath) on exertion Status: Acute (4) History of tonsillectomy Status: Resolved (5) Tachycardia Status: Acute (6) Menorrhagia Status: Acute Qualifiers: (7) UTI (urinary tract infection) Status: Acute (8) Sinusitis Status: Acute (9) Multiple benign nevi Status: Acute (10) Left ankle injury Status: Acute (11) Acute bronchitis Status: Acute (12) Lung nodule Status: Chronic (13) BISI positive Status: Chronic (14) Chronic fatigue Status: Chronic (15) Muscle cramps Status: Acute (16) Occult blood in stools Status: Acute (17) Flank pain Status: Acute (18) Tongue anomaly Status: Acute (19) Enlarged uterus Status: Chronic (20) Osteoporosis Status: Chronic (21) Fibromyalgia Status: Chronic (22) Muscle pain Status: Acute (23) Joint stiffness Status: Acute (24) Joint pain Status: Acute (25) UGI bleed Status: Acute (26) Intraventricular conduction delay Status: Chronic (27) Insomnia Status: Acute (28) Anxiety Status: Chronic (29) Vitamin D deficiency Status: Chronic (30) Anemia Status: Chronic (31) Fibroids Status: Chronic (32) 1st degree AV block Status: Acute History and Physical Date of Admission: 09/04/18 Vital Signs 08/11/18 Body Mass Index (BMI) 33.0 08/11/18 Height 5 ft 6 in 08/11/18 Weight: 212 lb 08/11/18 Body Mass Index (BMI) 34.2 08/11/18 Blood Pressure 118/88 H Intake Visit Reasons: pre op Chief Complaint: pre op LAVH BS CYSTO ERAS [employer] Chief Required: No Is patient in pain?: No Allergies No Known Allergies Allergy (Verified 08/14/18 11:31) Medications Atenolol [Tenormin (beta Carli)] 25 mg PO BID 11/12/15 [History Confirmed 08/14/18] alprazolam 0.25 mg tablet 0.25 mg PO BID-TID PRN 08/15/17 [History Confirmed 08/14/18] ferrous sulfate 325 mg (65 mg iron) tablet 325 mg PO QDAY tab 05/24/18 [History Confirmed 08/14/18] pantoprazole 40 mg tablet,delayed release 40 mg PO BID 08/15/17 [History Confirmed 08/14/18] zolpidem 10 mg tablet 5 mg PO QHS PRN 08/15/17 [History Confirmed 08/14/18] cholecalciferol (vitamin D3) 10,000 unit capsule 5,000 unit PO BID cap 08/21/17 [History Confirmed 08/14/18] levocetirizine 5 mg tablet 5 mg PO QHS 08/21/17 [History Confirmed 08/14/18] magnesium oxide 500 mg capsule 500 mg PO DAILY cap 08/21/17 [History Confirmed 08/14/18] turmeric root extract 500 mg capsule 500 mg PO BID 08/21/17 [History Confirmed 08/14/18] sertraline 100 mg tablet 100 mg PO DAILY 08/11/18 [History Confirmed 08/14/18] Is last menstrual period known: No Post menopausal: No Patient : No : No PFSH Medical History Tachycardia (Acute) Menorrhagia (Acute) UTI (urinary tract infection) (Acute) Sinusitis (Acute) Multiple benign nevi (Acute) Left ankle injury (Acute) Acute bronchitis (Acute) Lung nodule (Chronic) BISI positive (Chronic) Chronic fatigue (Chronic) Muscle cramps (Acute) Occult blood in stools (Acute) Flank pain (Acute) Tongue anomaly (Acute) Enlarged uterus (Chronic) Osteoporosis (Chronic) Fibromyalgia (Chronic) Muscle pain (Acute) Joint stiffness (Acute) Joint pain (Acute) UGI bleed (Acute) Intraventricular conduction delay (Chronic) Insomnia (Acute) Anxiety (Chronic) Vitamin D deficiency (Chronic) Anemia (Chronic) Fibroids (Chronic) 1st degree AV block (Acute) Hyperlipidemia (Acute) Surgical History History of tonsillectomy (Resolved) History of endometrial ablation (Acute) Family History Grandfather Cancer Diabetes Dementia Aunt Diabetes Cancer Uncle Cancer Dementia Social History Smoking Status: Never smoker alcohol intake: current alcohol intake frequency: holidays/special occasions only details: social substance use type: does not use caffeine: Yes what type of physical activity do you participate in: walking seatbelt use: always do you feel safe at home: Yes HPI pre op : Details: KG MCDERMOTT is a 52 year old who presents for preop visit. she has had persistent heavy menses and dysmenorrhea she has had an ablation in the past and has a 4 cm fibroid and a 10 cm uterus. Pregancy History 3 Elective abortions Hx Para 3 Spontaneous abortions Hx # Term Pregnancies Ectopic pregnancies Hx # Pregnancies Multiple births # of living children ROS Const Constitutional: Reports system reviewed and no additional complaints, except as docu GI GI: Denies abdominal pain, cramping, nausea or vomiting : Reports urinary frequency, urinary incontinence and urinary urgency Exam Const General: cooperative, healthy appearing, comfortable, no acute distress GI Inspection: normal to inspection Palpation: soft, nontender Other: Incisions: C/D/I Assessment & Plan Problems 1. Pelvic pain R10.2 2. Intramural uterine fibroid D25.1 plan LAVH BS cysto Plan discussed surgical risks including risks of anesthesia, infection, bleeding, injury to bowel, bladder or blood vessels, and patient wishes to proceed with surgery. plan lavh bs cysto Coding Level of Care Code No Charge Diagnoses Pelvic pain R10.2 Intramural uterine fibroid D25.1 UPDATE- I have seen the patient and performed any clinically relevant updates to the history and physical exam. Gloria Foster MD
[2018-08-21] VITALS (12 sets, daily range): BP systolic 85–107; BP diastolic 53–72; PULSE 56–77; RESP 18–20; TEMP 36.2–36.9; O2SAT 94–98; BMI 33.3
--- NOTE | 2018-08-21 05:51 | EKG12_ITS ---
Test Reason : PRE-OP Blood Pressure : / mmHG Vent. Rate : 074 BPM Atrial Rate : 074 BPM P-R Int : 186 ms QRS Dur : 088 ms QT Int : 388 ms P-R-T Axes : 039 046 020 degrees QTc Int : 430 ms Normal sinus rhythm Normal ECG Confirmed by ISRAEL FLOYD, ARTURO ([id number]), editor newspaper HILARIA HUNG ([id number]) on 08/25/2018 3:13:37 PM Referred By: Gloria Foster Confirmed By:ARTURO WOOD MD
[2018-08-21 06:01] LABS: Internal QC Validated? YES +Cl - CLEAR BKGD; Pregnancy, Urine Negative Negative
[2018-08-21 06:22] LABS: Prothrombin Time (Protime)PT. 12.7 SECONDS (11.7-14.9)
[2018-08-21] MEDS: Celecoxib 200 MG Capsule 400 MG PO (06:23)
[2018-08-21 06:24] LABS: Hematocrit 42.2 % (37-47); Hemoglobin 14.2 g/dl (12.0-15.0); Mean Corp Hgb Conc 33.6 g/gl (32-36); Mean Corpuscular Hgb 30.7 pg (27.0-32.0); Mean Corpuscular Volume 91.3 fL (81-99); Mean Platelet Vol. 11.3 fl (6.2-12.0); Platelet Count 271 K/mm3 (150-450); RBC Distribution Width CV 13.2 % (11.6-14.6); RBC Distribution Width SD 43.9 fl (35.1-43.9); Red Blood Count 4.62 M/mm3 (4.2-5.4); White Blood Count 8.4 K/mm3 (4.4-11.0)
[2018-08-21] MEDS: Enoxaparin 40 MG/0.4 ML Syringe SC (06:24)
[2018-08-21] MEDS: Gabapentin 600 MG Tablet PO (06:24)
[2018-08-21] MEDS: Acetaminophen 500 MG Tablet 1000 MG PO ×2 (06:24→16:37)
[2018-08-21] MEDS: Scopolamine 1mg/72hr Patch 1 PATCH TRANSDERM. (06:25)
[2018-08-21 06:26] LABS: Scan Indicated on CBC? Y/N NO
[2018-08-21] MEDS: Lactated Ringers 1,000 ML 40 ML IV (06:30)
[2018-08-21] MEDS: dexAMETHasone 10 MG/ML Vial 8 MG IV (06:31)
[2018-08-21] MEDS: Magnesium Sulfate 4gm/100mL 4 GM/100 ML IV.SOLN. IV (06:31)
[2018-08-21] MEDS: Cefazolin 2 GM in 0.9% Normal Saline 100 ML IV (07:30)
[2018-08-21 07:48] LABS: Bedside Glucose 115 mg/dL (70-110)
[2018-08-21] MEDS: Vasopressin 20 UNITS/ML Vial (08:30)
[2018-08-21] MEDS: Bupivacaine 0.25% 30 ML Vial (09:30)
--- NOTE | 2018-08-21 09:35 | PCM.OPRPT ---
Problem List (1) Pelvic pain Status: Acute (2) Intramural uterine fibroid Status: Chronic Comment: plan LAV BS cysto (3) SOB (shortness of breath) on exertion Status: Acute (4) Tachycardia Status: Acute (5) Menorrhagia Status: Acute Qualifiers: (6) UTI (urinary tract infection) Status: Acute (7) Sinusitis Status: Acute (8) Multiple benign nevi Status: Acute (9) Left ankle injury Status: Acute (10) Acute bronchitis Status: Acute (11) Lung nodule Status: Chronic (12) BISI positive Status: Chronic (13) Chronic fatigue Status: Chronic (14) Muscle cramps Status: Acute (15) Occult blood in stools Status: Acute (16) Flank pain Status: Acute (17) Tongue anomaly Status: Acute (18) Enlarged uterus Status: Chronic (19) Osteoporosis Status: Chronic (20) Fibromyalgia Status: Chronic (21) Muscle pain Status: Acute (22) Joint stiffness Status: Acute (23) Joint pain Status: Acute (24) UGI bleed Status: Acute (25) Intraventricular conduction delay Status: Chronic (26) Insomnia Status: Acute (27) Anxiety Status: Chronic (28) Vitamin D deficiency Status: Chronic (29) Anemia Status: Chronic (30) Fibroids Status: Chronic (31) 1st degree AV block Status: Acute Report of Operation Date of Procedure: 08/21/18 Pre-Operative Diagnosis: uterine fibroids, LARA Post-Operative Diagnosis: same Surgery/Procedure Performed:: yonathan garcia Description of Surgical Findings:: enlarged multiple fibroid uterus outdoor adventure leader: Apryl Patterson Type of Anesthesia:: General Special Medications: ryann Specimen's removed: uterus tubes Drains: cross Estimated Blood Loss (mL): 350 Fluids Replaced: crystalloid Description of Procedure: Patient received preoperative antibiotics and SCDs were on preoperatively. Patient was taken back to the operating room and placed in the dorsal lithotomy position. General anesthesia was induced and patient was prepped and draped in normal sterile fashion. Uterine manipulator was placed inside the uterus and Cross catheter placed in the bladder. The umbilicus was grasped with towel clamps and an intraumbilical incision was made after injecting with quarter percent Marcaine and a Veress needle entered into the abdomen confirmed to be intra-abdominal with a low opening pressure. Abdomen was insufflated with CO2 gas and the Veress needle removed and the 5 mm trocar was placed under direct visualization without complication. Right and left lower quadrants were transilluminated and injected with quarter percent Marcaine and 5 mm ports placed under direct visualization. Pelvis was well visualized see operative findings for additional information. Bilateral fallopian tubes were identified and transected with the LigaSure device across the mesosalpinx to the level of the utero-ovarian ligament which was also transected with the LigaSure device. The broad ligament was opened up by transecting the round ligament bilaterally and skeletonizing the uterine vessels bilaterally and creating a bladder flap using the LigaSure device. The uterine arteries were transected bilaterally with good visualization of the bladder and the ureters were seen to be inferior lateral to the operative area. Attention was then paid to the vaginal portion of the procedure and the cervix was grasped with Ida clamps and circumferentially injected with dilute vasopressin. A circumferential incision was made and the vaginal mucosa was mobilized off posteriorly and the cul-de-sac entered into sharply and a longneck speculum placed. The anterior cul-de-sac was then identified and entered into sharply. The uterosacral ligaments were clamped cut and suture ligated with 0 Monocryl bilaterally followed by the cardinal ligaments which were clamped cut and suture ligated bilaterally with 0 Monocryl. The uterus serially descended and was removed without difficulty with minimal morcellation. Pelvic sidewall pedicles were checked and noted to have excellent hemostasis. The vaginal mucosa was reapproximated incorporating the posterior peritoneum. This was reapproximated using 0 Vicryl [id number] sutures. Excellent hemostasis was noted. Please see Dr. Rockwell's dictation for the sling procedure information and cystoscopy. The pelvis and cul-de-sac was well visualized and no significant active bleeding noted but some raw areas were seen on the peritoneum and therefore Ryann was applied. Pressure was taken down and the areas visualized and noted of excellent hemostasis. All ports were removed under direct visualization without complication and the abdomen was desufflated of air. The instruments removed from the abdomen and the vagina vaginal sweep was negative. Port sites on the abdomen were closed with 4-0 Monocryl interrupted sutures and Steri's and windows were applied. She was awoken and taken recovery in stable condition. Grafts/Implants Used: sling - Complications none
--- NOTE | 2018-08-21 09:46 | PCM.OPRPT ---
Problem List (1) Urinary, incontinence, stress female Status: Acute (2) Urethral hypermobility Status: Acute Report of Operation Date of Procedure: 08/21/18 Pre-Operative Diagnosis: Stress urinary incontinence, urethral hypermobility Post-Operative Diagnosis: Same Surgery/Procedure Performed:: Altis mid urethral sling, cystourethroscopy Description of Surgical Findings:: Sling was flat without tension against the urethra, no urethral or bladder injury Type of Anesthesia:: General Description of Procedure: Patient is a 52-year-old female who presented with fibroid uterus going for hysterectomy and having stress urinary incontinence. After evaluation in the office, informed consent was obtained and she agreed to proceed with mid urethral sling insertion under anesthesia. Patient was taken to the operating room and placed on the operating room table. Anesthesia monitored the head, neck, airway, IV access and vital signs throughout the case. Once anesthesia was administered, the case was turned over to Dr. Dante Vasquez. The patient was prepped and draped in usual sterile fashion. She performed her portion of the surgery and close the vaginal vault. At this time, the case was turned to il. A Fowler catheter was draining her urinary bladder. The mid urethra was identified and injected submucosally with vasopressin for hydrostatic dissection and hemostatic control. A midline incision was made approximately 1.5 cm in length in vertical fashion over the mid urethra. Sharp and blunt dissection ensued on either side of the urethra with care being taken to avoid entry into the urethra. At this time the trochars were used to pass the sling. The first trocar was defective on the patient's right side, and a second sling was opened. This time the sling was passed without difficulty. The sling was flattened against the urethra without tension. The closure was performed with 2-0 Vicryl in running interlocking fashion. A cystourethroscopy revealed a normal urinary bladder anatomy with no evidence of entry into the urinary bladder, no foreign body, no mass or ulceration. The urinary bladder was emptied and the case was terminated. The patient was awakened and taken to the recovery room in good condition. There were no complications during this procedure. Grafts/Implants Used: Altis midurethral sling - Complications none - Admit VTE Documentation VTE Present on Admission: Yes VTE Mechan Device Prophylaxis: SCD's VTE Pharm Prophylaxis ordered?: Yes
--- NOTE | 2018-08-21 10:01 | DCINST_ITS ---
Discharge Diet: No Restrictions Discharge Activity: May not drive while taking narcotic pain medications. Additional Activity Instructions:: no lifting over 5 pounds, no exercise, no sexual activity Call your doctor if you observe: Fever of 101 or Higher, Inability to urinate, Inability to have a bowel movement, Using more than one pad per hour, Shortness of breath, Chest pain, Calf discomfort, Uncontrolled pain Allergies/Adverse Reactions: Allergies No Known Allergies Allergy (Verified 08/14/18 11:31) Medications to take at Discharge Atenolol [Tenormin (beta Carli)] 25 mg PO BID 11/12/15 alprazolam 0.25 mg tablet 0.25 mg PO BID-TID PRN 08/15/17 ferrous sulfate 325 mg (65 mg iron) tablet 325 mg PO QDAY tab 08/15/17 pantoprazole 40 mg tablet,delayed release 40 mg PO BID 08/15/17 zolpidem 10 mg tablet 5 mg PO QHS PRN 08/15/17 cholecalciferol (vitamin D3) 10,000 unit capsule 5,000 unit PO BID cap 08/21/17 levocetirizine 5 mg tablet 5 mg PO QHS 08/21/17 magnesium oxide 500 mg capsule 500 mg PO DAILY cap 08/21/17 turmeric root extract 500 mg capsule 500 mg PO BID 08/21/17 sertraline 100 mg tablet 100 mg PO DAILY 08/11/18 Cephalexin [Keflex] 500 mg PO Q12 3 Days #6 cap 08/21/18 The following prescriptions were given: Cephalexin [Keflex] 500 mg PO Q12 3 Days #6 cap Orders to be completed after discharge: Miscellaneous Order Location: None Selected Primary Care Physician: Melisa Hood PA-C [Primary Care Provider] - Test Results: Test results from this visit will be discussed in further detail at your follow- up appointment, if applicable. Please Follow Up With: Kamilah Rockwell MD When: call office for appt. Proposed Discharge Date: 08/21/18
[2018-08-21] MEDS: Ondansetron 4 MG/2 ML Vial IV (10:26)
[2018-08-21] MEDS: Ketorolac 30 MG/ML Syringe IV (10:26)
[2018-08-21] MEDS: oxyCODONE 5 MG Tablet PO (12:18)
[2018-08-21 14:11] LABS: Hematocrit 39.3 % (37-47); Mean Corp Hgb Conc 33.1 g/gl (32-36); Mean Corpuscular Hgb 30.4 pg (27.0-32.0); Platelet Count 241 K/mm3 (150-450); RBC Distribution Width CV 13.2 % (11.6-14.6); RBC Distribution Width SD 44.1 fl (35.1-43.9); Red Blood Count 4.27 M/mm3 (4.2-5.4); White Blood Count 14.3 K/mm3 (4.4-11.0)
[2018-08-21 14:14] LABS: Scan Indicated on CBC? Y/N NO
[2018-08-21] MEDS: Ondansetron ODT 4 MG Tablet PO (16:37)
== END 2018-08-21 16:57 | disposition home or self-care (01) ==
LOC: SDC 05:26 → AC 05:28
PROVIDERS: Anesthesiology; Urology; Family Provider Family Medicine; PCP Family Medicine; Referring Provider Obstetrics & Gynecology
PROC: 0UT9FZZ Resection of Uterus, Via Natural or Artificial Opening With Percutaneous Endoscopic Assistance (ICD-10-PCS; CPT 58554; principal; 2018-08-21 07:05)
PROC: 0TJB8ZZ Inspection of Bladder, Via Natural or Artificial Opening Endoscopic (ICD-10-PCS; CPT 57288; 2018-08-21 07:05)
DX: D25.1 Intramural leiomyoma of uterus (principal); N39.46 Mixed incontinence; N36.41 Hypermobility of urethra; R35.0 Frequency of micturition; N88.8 Other specified noninflammatory disorders of cervix uteri; N83.8 Other noninflammatory disorders of ovary, fallopian tube and broad ligament; N72 Inflammatory disease of cervix uteri; N92.0 Excessive and frequent menstruation with regular cycle; D64.9 Anemia, unspecified; E78.5 Hyperlipidemia, unspecified; M79.7 Fibromyalgia; M81.0 Age-related osteoporosis without current pathological fracture; E55.9 Vitamin D deficiency, unspecified; F32.9 Major depressive disorder, single episode, unspecified; F41.9 Anxiety disorder, unspecified; Z79.899 Other long term (current) drug therapy; Z87.440 Personal history of urinary (tract) infections
CPT/HCPCS: 57288; 58554; 36415; 81025; 82962; 85027; 85610; 85730; 86850; 86900; 88307; 93005; J7120; J2405; J3490

== ENCOUNTER → 2018-10-07 11:17 | Outpatient (CLI) | payer BC, SELFPAY ==
[2018-10-07 10:57] VITALS: BMI 33.3
[2018-10-07 11:36] LABS: Absolute Lymphocyte Count 2.18 X10^3/uL (0.83-4.51); Absolute Neutrophil Count 6.1 X10^3/uL (2.0-7.7); Basophil# 0.05 X10^3/uL; Basophil% 0.5 % (0-1); Eosinophil# 0.16 X10^3/uL; Eosinophils% 1.7 % (0-5); Hematocrit 43.3 % (37-47); Hemoglobin 14.5 g/dL (12.0-15.0); Lymphocyte # 2.18 X10^3/ul (4.0); Lymphocyte % 23.3 % (19-41); Mean Corp Hgb Conc 33.5 g/dL (32-36); Mean Corpuscular Hgb 31.3 pg (27.0-32.0); Mean Corpuscular Volume 93.5 fL (81-99); Mean Platelet Vol. 10.9 fl (6.2-12.0); Monocyte# 0.86 X10^3/uL; Monocyte% 9.2 % (0-10); NRBC Flagged by Analyzer 0 % (0-5); Neutrophil # 6.06 X10^3/uL (2.7-7.7); Platelet Count 298 K/mm3 (150-450); RBC Distribution Width CV 12.9 % (11.6-14.6); Red Blood Count 4.63 M/mm3 (4.2-5.4); White Blood Count 9.3 K/mm3 (4.4-11.0)
[2018-10-07 11:58] LABS: Thyroid Stim Hormone (TSH) 0.83 uIU/mL (0.358-3.74)
== END ==
PROVIDERS: Family Provider Family Medicine; PCP Family Medicine; Referring Provider Nurse Practitioner Women's Health; Visit Provider Nurse Practitioner Women's Health
DX: R53.83 Other fatigue (principal)
CPT/HCPCS: 36415; 84443; 85025

== ENCOUNTER → 2022-07-16 | Outpatient (CLI) | payer OTHER, SELFPAY ==
[2022-07-16 13:44] LABS: Absolute Lymphocyte Count 2.15 X10^3/uL (0.83-4.51); Absolute Neutrophil Count 4.2 X10^3/uL (2.0-7.7); Basophil# 0.04 X10^3/uL; Basophil% 0.6 % (0-1); Eosinophil# 0.13 X10^3/uL; Eosinophils% 1.8 % (0-5); Hematocrit 41.5 % (37-47); Hemoglobin 13.9 g/dL (12.0-15.0); Lymphocyte # 2.15 X10^3/ul (0.83-4.51); Lymphocyte % 30.5 % (19-41); Mean Corp Hgb Conc 33.5 g/dL (32-36); Mean Corpuscular Hgb 30.8 pg (27.0-32.0); Mean Corpuscular Volume 91.8 fL (81-99); Mean Platelet Vol. 11.3 fl (6.2-12.0); Monocyte# 0.52 X10^3/uL; Monocyte% 7.4 % (0-10); NRBC Flagged by Analyzer 0 % (0-5); Neutrophil % 59.4 % (47-70); Platelet Count 262 K/mm3 (150-450); RBC Distribution Width CV 12.8 % (11.6-14.6); RBC Distribution Width SD 42.7 fl (35.1-43.9); Red Blood Count 4.52 M/mm3 (4.2-5.4); White Blood Count 7.1 K/mm3 (4.4-11.0)
[2022-07-16 14:12] LABS: Vitamin B12 542 pg/mL (211-911); Vitamin D,25 Hydroxy 147.4 ng/mL
[2022-07-16 14:19] LABS: ALB/GLOB Ratio 0.9 RATIO (0.9-2.4); AST(SGOT) 14 U/L (15-37); Alanine Aminotransfer ALT/SGPT 18 U/L (13-56); Albumin, Serum 3.6 g/dL (3.2-5.0); Alkaline Phosphatase 107 U/L (45-117); Anion Gap 3 (5-15); BUN 12 mg/dL (7-18); BUN/Creat Ratio 11.4 RATIO (10-20); Calcium,Total 9.2 mg/dL (8.5-10.1); Chloride 107 mmol/L (98-107); Creatinine, Serum 1.05 mg/dL (0.55-1.02); EST Glomerular Filtration Rate 58 mL/min (>60); Est Glom Filt Rate - Afr Amer 70 mL/min (>60); Estradiol 113.6 pg/mL; Follicle Stimulating Hormone 22.1 mIU/mL; Free T3 2.5 pg/mL (2.18-3.98); Globulin 3.8 g/dL (2.2-4.2); Glucose 102 mg/dL (74-106); Potassium 3.8 mmol/L (3.5-5.1); Protein, Total 7.4 g/dL (6.4-8.2); Sodium Level 135 mmol/L (136-145); T4 Free Direct 0.99 ng/dL (0.76-1.46); Thyroid Stim Hormone (TSH) 1.12 uIU/mL (0.358-3.74)
[2022-07-17 14:31] LABS: T4 Total, Thyroxin 9.5 ug/dL (4.8-13.9)
[2022-07-17 22:52] LABS: T3 Total - Triiodothyronine < 0.10 ng/mL (0.6-1.81)
[2022-07-18 09:09] LABS: Thyroid Peroxidase AB < 9 IU/mL (0-34)
== END | disposition home or self-care (01) ==
DX: E07.9 Disorder of thyroid, unspecified (principal); N95.1 Menopausal and female climacteric states; N94.10 Unspecified dyspareunia; R68.82 Decreased libido; E55.9 Vitamin D deficiency, unspecified; E53.8 Deficiency of other specified B group vitamins; R53.83 Other fatigue
CPT/HCPCS: 36415; 80053; 82306; 82607; 82670; 83001; 84403; 84436; 84439; 84443; 84480; 84481; 85025; 86376

== ENCOUNTER → 2022-11-27 | Outpatient (CLI) | payer OTHER, SELFPAY ==
--- NOTE | 2022-11-27 10:51 | BI_ITS ---
MAMMOGRAPHY - BILATERAL SCREENING REASON FOR EXAM: Female, 57 years old. Routine annual screening examination. PERTINENT HISTORY: Aunt with breast cancer. Chronic inversion of the left nipple. TECHNIQUE: Digital bilateral breast lourdes (3D mammographic acquisition) in the CC and MLO projections. 2-D mediolateral oblique (MLO) and craniocaudad (CC) views of both breasts were obtained. CAD: Full Field Digital Mammography with Computer Added Detection was performed. COMPARISON: Comparison is made with prior outside examination dated August 19, 2019. FINDINGS: Breast Composition: There are scattered areas of fibroglandular density. There are no dominant masses or suspicious calcifications. No other significant abnormalities are identified. There has been no significant change since the prior study. BI/SCRN MAMM (CAD)W/LOURDES BILAT IMPRESSION: Stable bilateral screening mammogram. Yearly follow-up mammogram recommended. (A) ASSESSMENT CATEGORY: BIRADS Category 1: Negative. A letter regarding these results will be sent to the patient by the facility within 30 days. Approximately 10% of breast cancers are not detected by mammography. A normal mammogram should not delay biopsy of a clinically suspicious abnormality. [id number] Electronically Signed: Ti Ramirez MD at 12:50 EDT ,
== END | disposition home or self-care (01) ==
LOC: OPBI 10:51
PROVIDERS: Referring Provider Obstetrics & Gynecology; Visit Provider Obstetrics & Gynecology
DX: Z12.31 Encounter for screening mammogram for malignant neoplasm of breast (principal)
CPT/HCPCS: 77063; 77067

== ENCOUNTER → 2023-07-03 | Outpatient (CLI) | payer OTHER, SELFPAY | END | disposition home or self-care (01) | LOC: SL 09:58 | PROVIDERS: Referring Provider Nurse Practitioner Family; Visit Provider Nurse Practitioner Family | DX: G47.10 Hypersomnia, unspecified (principal) | CPT/HCPCS: 95806 ==

== ENCOUNTER → 2023-07-16 | Outpatient (CLI) | payer OTHER, SELFPAY ==
[2023-07-16 10:57] LABS: Absolute Lymphocyte Count 1.64 X10^3/uL (0.83-4.51); Absolute Neutrophil Count 3.4 X10^3/uL (2.0-7.7); Basophil# 0.03 X10^3/uL; Basophil% 0.5 % (0-1); Eosinophil# 0.22 X10^3/uL; Eosinophils% 3.5 % (0-5); Hemoglobin 14.7 g/dL (12.0-15.0); Lymphocyte # 1.64 X10^3/ul (0.83-4.51); Lymphocyte % 26.4 % (19-41); Mean Corp Hgb Conc 33.4 g/dL (32-36); Mean Corpuscular Hgb 29.9 pg (27.0-32.0); Mean Corpuscular Volume 89.6 fL (81-99); Monocyte# 0.86 X10^3/uL; Monocyte% 13.8 % (0-10); NRBC Flagged by Analyzer 0 % (0-5); Neutrophil # 3.44 X10^3/uL (2.7-7.7); Neutrophil % 55.5 % (47-70); Platelet Count 208 K/mm3 (150-450); RBC Distribution Width CV 13.5 % (11.6-14.6); RBC Distribution Width SD 44.2 fl (35.1-43.9); Red Blood Count 4.91 M/mm3 (4.2-5.4); White Blood Count 6.2 K/mm3 (4.4-11.0)
[2023-07-16 10:58] LABS: Vitamin B12 650 pg/mL (211-911)
[2023-07-16 11:13] LABS: AST(SGOT) 11 U/L (15-37); Alanine Aminotransfer ALT/SGPT 17 U/L (13-56); Albumin, Serum 3.8 g/dL (3.2-5.0); Alkaline Phosphatase 123 U/L (45-117); Anion Gap 7 (5-15); BUN 20 mg/dL (7-18); BUN/Creat Ratio 16.1 RATIO (10-20); Calcium,Total 9.5 mg/dL (8.5-10.1); Chloride 105 mmol/L (98-107); Cholesterol 334 mg/dL (200); Creatinine, Serum 1.24 mg/dL (0.55-1.02); EST Glomerular Filtration Rate 48 mL/min (>60); Est Glom Filt Rate - Afr Amer 58 mL/min (>60); Globulin 3.8 g/dL (2.2-4.2); Glucose 103 mg/dL (74-106); High Density Lipoprotein 63 mg/dL; Protein, Total 7.6 g/dL (6.4-8.2); Sodium Level 138 mmol/L (136-145); Thyroid Stim Hormone (TSH) 3.25 uIU/mL (0.358-3.74); Triglycerides 327 mg/dL; Very Low Density Lipoprotein 65 mg/dL (5-40)
== END | disposition home or self-care (01) ==
LOC: LAB 09:49
PROVIDERS: PCP Nurse Practitioner Family; Referring Provider Nurse Practitioner Family; Visit Provider Nurse Practitioner Family
DX: I10 Essential (primary) hypertension (principal); D50.9 Iron deficiency anemia, unspecified
CPT/HCPCS: 36415; 80053; 80061; 82306; 82607; 84443; 85025